=== PATIENT | female | born 1960 | race Hispanic/Latino ===

== ENCOUNTER 2025-01-16 18:44 | Emergency (ER) | payer OTHER ==
[~2025-01-16] VITALS: Ht 157.5 cm; Wt 59.8 kg
[2025-01-16] MEDS ORDERED: ASPIRIN 81 MG CHEW PO ONE (19:00)
[2025-01-16 19:19] LABS: BASOPHILS 0.9 % (0.1-1.2); EOSINOPHILS 1.4 % (0.7-5.8); LYMPHOCYTES 39.8 % (19.3-51.7); MCH 31.5 PG (25.6-32.2); MCHC 34.2 g/dL (32.2-35.5); MCV 92.1 fL (79.4-94.8); MONOCYTES 7.5 % (4.7-12.5); NEUTROPHILS 50.0 % (34.0-71.1); RBC 4.82 M/uL (3.93-5.22)
[2025-01-16 19:36] LABS: ALT (SGPT) 30 U/L (14-59); AST (SGOT) 22 U/L (15-37); GLOMERULAR FILTRATION RATE,EST 75 mL/min (>60); PROTEIN, TOTAL 7.1 g/dL (6.4-8.2); UREA NITROGEN 21 mg/dL (7-18)
[2025-01-16] MEDS ORDERED: METFORMIN HCL500 M2 PO (19:59)
[2025-01-16] MEDS ORDERED: EZETIMIBE10 MG PO (19:59)
[2025-01-16] MEDS ORDERED: PANTOPRAZOLE SO40 M2 PO (19:59)
[2025-01-16 21:39] VITALS: BP 118/57
--- OUTSIDE RECORDS SUMMARY | 2025-01-16 21:39 | XMS ---
PreManage Notification: YNES GODDARD [employer] Events No recent Security Events currently on file CRITERIA MET - [address] in 90 Days CARE PROVIDERS -, [facility] Dentist: Sales Estimator Current [place] PHONE: [phone] JOSE UREÑABER Surgery Current PHONE: Unknown TYLER TELLEZ Internal Medicine Current PHONE: Unknown SARAH RAMOS Nurse Practitioner: Family Current PHONE: Unknown John has no Care Guidelines for this patient. [place] VISIT COUNT (12 MO.) 2 [facility] ([place]) 1 [facility] TOTAL 4 NOTE: Visits indicate total known visits. ED/UCC VISIT TRACKING (12 MO.) 01/16/2025 18:45 [facility] TYPE: Emergency COMPLAINT: - SOB 11/28/2024 17:13 [facility] [place] [place] ([place]) TYPE: Emergency DIAGNOSES: - Chest pain, unspecified - Chest Pressure - cp, sob - Fatigue 11/06/2024 14:27 [facility] TYPE: Emergency DIAGNOSES: - Gastro-esophageal reflux disease without esophagitis - Abdominal Pain 03/05/2024 15:24 [facility] [place] ([place] TYPE: Emergency DIAGNOSES: - Chest pain, unspecified - abnormal labs, sent from clinic INPATIENT VISIT TRACKING (12 MO.) No inpatient visits to display in this time frame [email or web address]
--- NOTE | 2025-01-17 16:03 | EKG ---
[facility] [address] [place], [place] [address] Signed Normal sinus rhythm Normal ECG No previous ECGs available Confirmed by SONIA SAMUEL MD ([id number]) on 01/17/2025 4:02:56 PM Electronically Signed By: SONIA SAMUEL 01/17/25 1603 PATIENT NAME: YNES GODDARD Electrocardiogram DATE OF : 62 PHYSICIAN: SONIA SAMUEL REPORT #: [id number] REPORT IS CONFIDENTIAL AND NOT TO BE RELEASED WITHOUT AUTHORIZATION
== END 2025-01-16 21:28 | disposition home or self-care (01) ==
LOC: ED 18:44
PROVIDERS: Emergency Medicine
DX: R06.02 Shortness of breath (principal); Z88.0 Allergy status to penicillin; Z79.899 Other long term (current) drug therapy; Z79.84 Long term (current) use of oral hypoglycemic drugs
CPT/HCPCS: 36415; 71045; 80053; 83735; 84484; 85025; 85379; 93005; 93010; 96374; 99285-25; A9270; J2405